=== PATIENT | female | born 1970 | race Hispanic/Latino ===

== ENCOUNTER 2025-03-14 20:14 | Emergency (ER) | payer SELFPAY ==
[~2025-03-14] VITALS: Ht 165.1 cm; Wt 99.8 kg
--- NOTE | 2025-03-14 20:24 | ERN ---
ED Note History of Present Illness Stated Complaint: FALL Chief Complaint: Mechanical Fall Time Seen by MD: 20:17 Dictation: 54-YEAR-OLD FEMALE COMING TO THE EMERGENCY ROOM VIA EMS WITH COMPLAINTS OF A FALL FROM A LADDER WITH PAIN SEVERAL PLACES. SHE IS COMPLAINING OF RIGHT KNEE AND ANTERIOR TIBIAL PAIN, LEFT HAND PAIN, LEFT LATERAL MANDIBULAR PAIN. SHE STATES HER LADDER WAS LEANING AGAINST A PIANO, THE LADDER STARTED SCOOTING SHE WAS CLIMBING UP THE LADDER AND SHE FELL DOWN APPROXIMATELY 1-1/2 STEPS HIT HER FACE AND THEN THE GROUND. SHE HAD NO LOC NO NAUSEA NO VOMITING NO MIDLINE SPINE PAIN. NEUROLOGICALLY SHE IS INTACT. EMS STATES HER BLOOD SUGAR WAS 264 IN ROUTE, PATIENT STATES SHE HAS NO PRIMARY CARE DOCTOR AND "SHE EATS A LOT OF SWEETS." Allergies: Coded Allergies: No Known Drug Allergies (Unverified Allergy, Unknown, 03/14/25) Past Medical History History: Not Applicable RN Note Reviewed/Agreed w/PFSH: Yes Review of System Dictation CONSTITUTIONAL: NEGATIVE EXCEPT FOR HPI HEAD/FACE: NEGATIVE EXCEPT FOR HPI LEFT LATERAL MANDIBULAR ABRASIONS EENT: NEGATIVE EXCEPT FOR HPI RESPIRATORY: NEGATIVE EXCEPT FOR HPI GASTROINTESTINAL/ABDOMINAL: NEGATIVE EXCEPT FOR HPI GENITOURINARY: NEGATIVE EXCEPT FOR HPI MUSCULOSKELETAL: NEGATIVE EXCEPT FOR HPI LEFT HAND, RIGHT KNEE AND RIGHT TIBIAL TENDERNESS PAIN INTEGUMENTARY: NEGATIVE EXCEPT FOR HPI NEUROLOGICAL/PSYCH: NEGATIVE EXCEPT FOR HPI HEMATOLOGIC/LYMPHATIC: NEGATIVE EXCEPT FOR HPI ALL SYSTEMS NEGATIVE, EXCEPT NOTED ABOVE. 13 POINT REVIEW OF SYSTEMS ASSESSED AND ALL NEGATIVE EXCEPT FOR ABOVE. Initial Vital Sign VS Vital Signs Date Time Temp Pulse Resp B/P (MAP) Pulse Ox O2 Delivery O2 Flow Rate FiO2 03/14/25 20:16 98.8 88 16 179/97 99 Room Air 0 Physical Exam Dictation VITAL SIGNS REVIEWED GENERAL APPEARANCE: ALERT, ORIENTED X 3, MILD ACUTE DISTRESS, WELL DEVELOPED, NOURISHED. HEAD AND FACE: N ABRASIONS TO LEFT LATERAL MANDIBULAR AREA. BILATERAL TMJ IS INTACT, NO CREPITATION AND FULL RANGE OF MOTION TO MANDIBLE. EYES: PERRL, PINK CONJUNCTIVAS, EYELID NO TRAUMA, ANTERIOR CHAMBER WITH ARCUS SENILIS. EARS: PINNAS INTACT AND NO SIGNS OF TRAUMA OR ERYTHEMA EAR CANALS CLEAR AND NO DISCHARGE TM NO ERYTHEMA NOSE: NO DISCHARGE, NO BLEEDING. OROPHARYNX: MOUTH NORMAL, TONGUE PINK, PHARYNX CLEAR,NO ERYTHEMA, TONSILS NO EXUDATES, NO ABSCESSES NOTED, MUCOUS MEMBRANE MOIST NECK: SUPPLE, NON-TENDER, NO THYROMEGALY, NO MASSES, NO JVD, NO BRUITS BREAST:DEFERRED CHEST:NO TENDERNESS, NO CREPITUS, NO PARADOXICAL MOVEMENT, NO RETRACTIONS LUNGS:CLEAR, WELL-VENTILATED, SYMMETRIC, NO RALES, NO WHEEZING, NO RHONCHI, NO STRIDOR, GOOD BREATH SOUNDS BILATERALLY HEART: REGULAR RATE, REGULAR RHYTHM, NO MURMUR, NO GALLOPS VASCULAR: NO PERIPHERAL EDEMA, ABDOMEN: SOFT, POSITIVE BOWEL SOUNDS, NONDISTENDED, NO GUARDING, NONTENDER, NO REBOUND, NO MASSES NO HEPATOMEGALY, NO SPLENOMEGALY, NO TESFAYE'S SIGN, NO HERNIAS. RECTAL: DEFERRED GENITAL: DEFERRED NEUROLOGICAL: NORMAL SPEECH, MOTOR FUNCTION INTACT, SENSORY FUNCTION INTACT INTACT MUSCULOSKELETAL: NECK NONTENDER, FULL RANGE OF MOTION, BACK NONTENDER, FULL RANGE OF MOTION, FULL RANGE OF MOTION TO ALL EXTREMITIES EXTREMITIES: COMPLAINING OF LEFT HAND PAIN, FULL RANGE OF MOTION. ALSO TENDERNESS PAIN TO RIGHT KNEE AND RIGHT TIBIAL AREA WITH A ABRASIONS. DISTAL NEUROVASCULAR CMS INTACT. SKIN: COLOR PINK, SUPERFICIAL ABRASIONS TO RIGHT ANTERIOR TIBIAL AREA. LYMPHATIC: DEFERRED Results (Laboratory/Radiology) Laboratory/Radiology 2124/RIGHT TIBIA X-RAY NEGATIVE BE AWARE THAT PATIENT REFUSED ALL THE X-RAYS BECAUSE SHE WAS ONLY GOING TO PAY FOR A TIB FIB FILM. Labs Reviewed?: Yes ED Course ED Course Orders Procedure Category Date Status Time Tibia/Fibula 2vws Rt RAD 03/14/25 Taken 20:17 Apply Ice Pack To: CPOE 03/14/25 Transmitted (Er) 20:17 Acetaminophen 500mg PHA 03/14/25 Complete Tab (Tylenol 500mg T 20:30 Current Medications Medications (Trade) Dose Ordered Sig/Brittany Route PRN Reason Start Time Stop Time Status Last Admin Dose Admin Acetaminophen (TYLenol 500MG TAB) 1,000 mg ONCE ONCE PO 03/14/25 20:30 03/14/25 20:31 DC 03/14/25 20:45 Vital Signs Date Time Temp Pulse Resp B/P (MAP) Pulse Ox O2 Delivery O2 Flow Rate FiO2 03/14/25 20:16 98.8 88 16 179/97 99 Room Air 0 0/PATIENT REFUSED LABS AT THIS TIME. SHE WAS MADE AWARE THAT HER FINGERSTICK BLOOD SUGAR IN ROUTE VIA EMS WAS 264. SHE UNDERSTOOD THAT THERE WAS A HIGH PROBABILITY THAT SHE WAS A DIABETIC. SHE REFUSED THE LABS AND SAID SHE WOULD RATHER FOLLOW UP OUTPATIENT ALL SHE WANTS IS THE IMAGING DONE FOR HER AREAS OF RAQUEL 2104/SPOKE WITH ANAT FROM RADIOLOGY. HE SITS PATIENT HAS REFUSED MANDIBLE, LEFT HAND, KNEE AND ONLY WANTS TO PAY FOR HER RIGHT TIBIA X-RAY. I ADVISED HIM TO SHOOT THE X-RAY. Medical Decision Making MDM MEDICAL DECISION-MAKING BASED ON X-RAYS AND LABS. PATIENT REFUSED ALL X-RAYS EXCEPT FOR TIB FIB SHE REFUSED LABS STATING SHE DID NOT NEED THEM AND WOULD SEE HER DOCTOR. SHE WAS MADE AWARE THAT HER BLOOD SUGAR ON A SPOT CHECK WAS 264 AND THAT MOST LIKELY SHE WAS A TYPE 2 DIABETIC SHE SAID SHE UNDERSTOOD AND WOULD FOLLOW UP WITH HER PRIMARY CARE DOCTOR. DX & DISP Disposition: Discharge Departure Impression: Primary Impression: Contusion, multiple sites Additional Impressions: Hyperglycemia, Fall on/from ladder Condition: Stable Additional Instructions: FOLLOW-UP WITH PRIMARY CARE PROVIDER IN 1 TO 2 DAYS. TAKE MEDICATIONS DIREC NOÉ HERE IN THE EMERGENCY ROOM. OKAY TO CONTINUE HOME MEDICATIONS UNLESS OTHERWISE DISCUSSED DURING YOUR VISIT IN THE EMERGENCY ROOM TODAY. RETURN TO YOUR NEAREST EMERGENCY ROOM IF SYMPTOMS WORSEN OR IF THERE IS NO IMPROVEMENT. CALL 911 IF YOU NEED IMMEDIATE ASSISTANCE. TAKE TYLENOL OR MOTRIN [id number] NEEDED AND IF NO CONTRAINDICATIONS ARE PRESENT. INCREASE ORAL HYDRATION. A WOUND CULTURE OR URINE CULTURE WAS ORDERED HERE IN THE EMERGENCY ROOM DEPARTMENT PLEASE FOLLOW-UP WITH PRIMARY CARE PROVIDER AND ADVISE THEM TO GET REPEAT PORTS FROM OUR FACILITY. IF YOU HAD ANY CHADD WRAP/SPLINTS THAT WERE APPLIED HERE, PLEASE DO NOT REMOVE THEM UNTIL YOU SEE YOUR PRIMARY CARE OR SPECIALTY. COOL COMPRESSES TO PAIN THREE TO 4 TIMES A DAY. STRONGLY SUGGEST YOU FOLLOW UP WITH YOUR PRIMARY CARE DOCTOR OR CLINIC FOR FOLLOW UP ON YOUR BLOOD SUGAR OF 264 BY EMS. RETURN TO THE EMERGENCY ROOM IF ANY OTHER PAINS OR CONCERNS. Referrals: SELF,REFERRAL (PCP) Time of Disposition: 21:24 I have reviewed the case, and I agree with, Diagnosis and Plan CAMRON AVITIA NP Mar 14, 2025 20:24
--- NOTE | 2025-03-14 20:33 | NUR ---
PATIENT REFUSED BLOOD DRAW AND BLOOD WORK.
[2025-03-14 21:47] VITALS: BP 160/78; PULSE 82; RESP 18; TEMP 98.4; O2SAT 98
--- NOTE | 2025-03-14 21:54 | HMCIMG ---
EXAM: CR right Tibia and fibula, 2 View. CLINICAL HISTORY: RIGHT TIBIAL PAIN STATUS POST FALL FROM LADDER COMPARISON: None provided. FINDINGS: BONES: No acute fracture or aggressive appearing osseous lesion. Old patellar sleeve avulsion injury. JOINTS: No dislocation. The joint spaces are normal. SOFT TISSUES: The soft tissues are unremarkable. IMPRESSION: 1. No acute osseous injury. /[place]
== END 2025-03-14 21:49 | disposition home or self-care (01) ==
LOC: EDH 20:14
DX: S00.81XA Abrasion of other part of head, initial encounter (principal); S80.811A Abrasion, right lower leg, initial encounter; W11.XXXA Fall on and from ladder, initial encounter; Y93.89 Activity, other specified; Y92.89 Other specified places as the place of occurrence of the external cause; Y99.8 Other external cause status
CPT/HCPCS: 73590; 99283